=== PATIENT | male | born 1995 | race Hispanic/Latino ===

== ENCOUNTER 2016-06-11 14:41 | Emergency (ER) | payer BC ==
[2016-06-11 14:53] VITALS: BMI 18.5
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
[2016-06-11 16:23] VITALS: RESP 18; TEMP 98
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
[2016-06-11 17:54] VITALS: BP 119/81; PULSE 69; O2SAT 99
== END 2016-06-11 18:10 | disposition home or self-care (01) ==
LOC: ED 14:41
DX: S02.2XXD Fracture of nasal bones, subsequent encounter for fracture with routine healing (principal); S01.21XD Laceration without foreign body of nose, subsequent encounter; Y08.89XD Assault by other specified means, subsequent encounter

== ENCOUNTER 2017-10-11 11:13 | Emergency (ER) | payer BC ==
[2017-10-11 11:23] VITALS: BMI 19.0
[2017-10-11 11:26] VITALS: BP 121/86; RESP 18
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
[2017-10-11 12:20] LABS: URINE BILIRUBIN NEGATIVE (NEGATIVE); URINE BLOOD NEGATIVE (NEGATIVE); URINE GLUCOSE (UA) NEGATIVE (NEGATIVE); URINE LEUKOCYTE ESTERASE NEGATIVE Leu/uL (NEGATIVE); URINE PROTEIN 30 mg/dL (<30 mg/dL); URINE UROBILINOGEN 0.2 E.U./dL (<1 E.U./dL)
[2017-10-11 12:21] LABS: URINE APPEARANCE CLEAR (CLEAR); URINE COLOR YELLOW (YELLOW)
[2017-10-11 12:22] LABS: BASO # 0.05 K/mm3 (0.0-2.0); BASO % 0.4 % (0.0-3.0); EOS % 0.3 % (1.5-5.0); GRAN # 8.33 (1.4-6.5); GRAN % 72.2 % (50.0-68.0); HEMOGLOBIN 16.7 g/dL (14.0-18.0); LYMPH % 16.9 % (22.0-35.0); MEAN CELL VOLUME 85.4 fl (80.0-105.0); MEAN CORPUSCULAR HEMOGLOBIN 30.1 pg (25.0-35.0); MEAN CORPUSCULAR HGB CONC 35.2 g/dl (31.0-37.0); MEAN PLATELET VOLUME 9.6 fl (7.0-11.0); MONO # 1.2 (0.1-0.6); MONO % 10.2 % (1.0-6.0); RBC 5.55 10^6/uL (3.5-6.1); RED CELL DISTRIBUTION WIDTH 13.5 % (11.5-14.5); WHITE BLOOD COUNT 11.6 10^3/ul (4.5-11.0)
[2017-10-11 12:31] LABS: ALB/GLOB RATIO 1.5 (1.1-1.8); ALBUMIN 5.5 g/dL (3.0-4.8); ALT/SGPT 27 U/L (7-56); AST/SGOT 32 U/L (17-59); BLOOD UREA NITROGEN 14 mg/dL (7-21); CALCIUM 10.1 mg/dL (8.4-10.5); GFR AFRICAN-AMERICAN > 60; GFR NON-AFRICAN AMERICAN > 60
[2017-10-11 12:33] LABS: ACETAMINOPHEN < 10.0 ug/ml (10.0-20.0); SALICYLATE < 1 mg/dL (2.0-20.0)
[2017-10-11 12:47] LABS: URINE BACTERIA FEW (NEG); URINE RBC 0 - 2 /hpf (0-2); URINE WBC 0 - 2 /hpf (0-6)
[2017-10-11 12:53] LABS: BARBITURATES, UR NEGATIVE (NEGATIVE); BENZODIAZEPINES, UR NEGATIVE (NEGATIVE); OPIATES, UR NEGATIVE (NEGATIVE); PHENCYCLIDINE, UR NEGATIVE (NEGATIVE)
--- NOTE | 2017-10-11 13:49 | RAD ---
Date of service: 10/11/2017 HISTORY: medical screening COMPARISON: No prior. FINDINGS: LUNGS: No active pulmonary disease. PLEURA: No significant pleural effusion identified, no pneumothorax apparent. CARDIOVASCULAR: Normal. OSSEOUS STRUCTURES: No significant abnormalities. VISUALIZED UPPER ABDOMEN: Normal. OTHER FINDINGS: None. IMPRESSION: No active disease.
--- NOTE | 2017-10-11 15:06 | CT ---
Date of service: 10/11/2017 PROCEDURE: CT HEAD WITHOUT CONTRAST. HISTORY: psychosis COMPARISON: None available. TECHNIQUE: Axial computed tomography images were obtained through the head/brain without intravenous contrast. Radiation dose: Total exam DLP = 833.29 mGy-cm. This CT exam was performed using one or more of the following dose reduction techniques: Automated exposure control, adjustment of the mA and/or kV according to patient size, and/or use of iterative reconstruction technique. FINDINGS: HEMORRHAGE: No intracranial hemorrhage. BRAIN: No mass effect or edema. No atrophy or chronic microvascular ischemic changes. VENTRICLES: Unremarkable. No hydrocephalus. CALVARIUM: Unremarkable. PARANASAL SINUSES: Unremarkable as visualized. No significant inflammatory changes. MASTOID AIR CELLS: Unremarkable as visualized. No inflammatory changes. OTHER FINDINGS: None. IMPRESSION: Normal CT of the Head.
[2017-10-11 15:28] VITALS: PULSE 89; TEMP 98.1; O2SAT 98
--- NOTE | 2017-10-11 20:02 | CARD ---
APPROVED REPORT Date of service: 10/11/2017 EKG Measurement Heart [id number] <Conclusion> Normal sinus rhythm with sinus arrhythmia Normal ECG
== END 2017-10-11 15:28 | disposition home or self-care (01) ==
LOC: ED 11:13
DX: R44.3 Hallucinations, unspecified (principal)
CPT/HCPCS: 70450; 71045; 80053; 81001; 85025; 90791; 93005; 99282; G0480

== ENCOUNTER 2017-10-13 11:28 | Inpatient (IN) | payer BC ==
[2017-10-13 11:28] VITALS: BMI 19.0
[2017-10-13 13:56] LABS: BASO # 0.03 K/mm3 (0.0-2.0); BASO % 0.4 % (0.0-3.0); EOS # 0.1 (0.0-0.7); EOS % 1.8 % (1.5-5.0); GRAN # 4.46 (1.4-6.5); GRAN % 58.9 % (50.0-68.0); HEMOGLOBIN 16.9 g/dL (14.0-18.0); LYMPH # 2.2 (1.2-3.4); LYMPH % 28.6 % (22.0-35.0); MEAN CELL VOLUME 84.7 fl (80.0-105.0); MEAN CORPUSCULAR HEMOGLOBIN 30.5 pg (25.0-35.0); MEAN PLATELET VOLUME 9.9 fl (7.0-11.0); MONO # 0.8 (0.1-0.6); MONO % 10.3 % (1.0-6.0); RBC 5.55 10^6/uL (3.5-6.1); RED CELL DISTRIBUTION WIDTH 13.3 % (11.5-14.5); WHITE BLOOD COUNT 7.6 10^3/ul (4.5-11.0)
[2017-10-13 14:00] LABS: URINE BILIRUBIN NEGATIVE (NEGATIVE); URINE BLOOD NEGATIVE (NEGATIVE); URINE GLUCOSE (UA) NEGATIVE (NEGATIVE); URINE LEUKOCYTE ESTERASE NEGATIVE Leu/uL (NEGATIVE); URINE PROTEIN TRACE mg/dL (<30 mg/dL); URINE UROBILINOGEN 0.2 E.U./dL (<1 E.U./dL)
[2017-10-13 14:02] LABS: URINE APPEARANCE SL CLOUDY (CLEAR); URINE COLOR YELLOW (YELLOW)
[2017-10-13 14:07] LABS: ACETAMINOPHEN < 10.0 ug/ml (10.0-20.0); SALICYLATE < 1 mg/dL (2.0-20.0)
[2017-10-13 14:18] LABS: URINE RBC 0 - 2 /hpf (0-2); URINE WBC 0 - 2 /hpf (0-6)
[2017-10-13 14:19] LABS: URINE BACTERIA MOD (NEG)
[2017-10-13 14:21] LABS: BARBITURATES, UR NEGATIVE (NEGATIVE); BENZODIAZEPINES, UR NEGATIVE (NEGATIVE); OPIATES, UR NEGATIVE (NEGATIVE); PHENCYCLIDINE, UR NEGATIVE (NEGATIVE)
[2017-10-13 14:21] LABS: ALB/GLOB RATIO 1.6 (1.1-1.8); ALT/SGPT 23 U/L (7-56); AST/SGOT 30 U/L (17-59); BLOOD UREA NITROGEN 13 mg/dL (7-21); CALCIUM 9.7 mg/dL (8.4-10.5); GFR AFRICAN-AMERICAN > 60; GFR NON-AFRICAN AMERICAN > 60
--- NOTE | 2017-10-13 14:23 | ED PDOC ---
Arrival/HPI - General Chief Complaint: Psychiatric Evaluation Time Seen by Provider: 10/13/17 11:31 Historian: Patient - History of Present Illness Narrative History of Present Illness (Text): 10/13/17 14:20 21yo male with pmhx of ADHD present to ED with the mother by the bedside for psychiatric evaluation. Mother states patient has been having insomnia after using Ecstasy 3weeks ago, having decreased appetite and hallucinating. He reports suicidal ideation. Denies HI, any somatic complaint. Past Medical History - Provider Review Nursing Documentation Reviewed: Yes - Infectious Disease Hx of Infectious Diseases: None - Tetanus Immunization Tetanus Immunization: Up to Date - Cardiac Hx Cardiac Disorders: No Hx Hypertension: No - Pulmonary Hx Asthma: Yes - Neurological HX Cerebrovascular Accident: No Hx Seizures: No - Hematological/Oncological Hx Cancer: No - Genitourinary/Gynecological Hx Sexually Transmitted Diseases: No - Psychiatric Hx Substance Use: No Other/Comment: adhd - Past Surgical History Past Surgical History: No Previous - Surgical History Other/Comment: nasal surgery - Anesthesia Hx Anesthesia: No Hx Anesthesia Reactions: No Hx Malignant Hyperthermia: No - Suicidal Assessment Feels Threatened In Home Enviroment: No Family/Social History - Physician Review Nursing Documentation Reviewed: Yes Family/Social History: Unknown Family HX Smoking Status: Current Some Days Smoker Hx Alcohol Use: Yes Hx Substance Use: No Hx Substance Use Treatment: No Allergies/Home Meds Allergies/Adverse Reactions: Allergies No Known Allergies Allergy (Verified 10/13/17 15:36) Home Medications: Home Meds Medication Instructions Recorded Confirmed Atomoxetine HCl [Strattera] 10 mg PO BID 10/11/17 10/13/17 Review of Systems - Physician Review All systems were reviewed & negative as marked: Yes - Review of Systems Constitutional: Normal Eyes: Normal ENT: Normal Respiratory: Normal Cardiovascular: Normal Gastrointestinal: Normal Genitourinary Male: Normal Musculoskeletal: Normal Skin: Normal Neurological: Normal Endocrine: Normal Hemo/Lymphatic: Normal Psychiatric: Suicidal Ideation Physical Exam Vital Signs Reviewed: Yes Vital Signs Temp Pulse Resp BP Pulse Ox 10/13/17 14:47 98.0 F 80 19 99 10/13/17 14:46 98.1 F 79 18 129/89 99 10/13/17 12:55 98.0 F 82 17 134/79 98 Temperature: Afebrile Blood Pressure: Normal Pulse: Regular Respiratory Rate: Normal Appearance: Positive for: Well-Appearing, Non-Toxic, Comfortable Pain Distress: None Mental Status: Positive for: Alert and Oriented X 3 - Systems Exam Head: Present: Atraumatic, Normocephalic Pupils: Present: PERRL Extroacular Muscles: Present: EOMI Conjunctiva: Present: Normal Mouth: Present: Moist Mucous Membranes Neck: Present: Normal Range of Motion Respiratory/Chest: Present: Clear to Auscultation, Good Air Exchange. No: Respiratory Distress, Accessory Muscle Use Cardiovascular: Present: Regular Rate and Rhythm, Normal S1, S2. No: Murmurs Abdomen: No: Tenderness, Distention, Peritoneal Signs Back: Present: Normal Inspection Upper Extremity: Present: Normal Inspection. No: Cyanosis, Edema Lower Extremity: Present: Normal Inspection. No: Edema Neurological: Present: GCS=15, CN II-XII Intact, Speech Normal Skin: Present: Warm, Dry, Normal Color. No: Rashes Psychiatric: Present: Alert, Oriented x 3, Normal Insight, Normal Concentration Medical Decision Making ED Course and Treatment: 10/13/17 20:56 PT was calm in ED. Medically cleared in ED for psych evaluation. she was seen by Dioni and admitted to Dr. Ghotra for Substance induced psychosis. EKG NSR @82bpm - Lab Interpretations Lab Results: 10/13/17 13:45 10/13/17 13:45 Lab Results 10/13/17 13:45: Alcohol, Quantitative < 10 10/13/17 13:45: Salicylates < 1 L, Acetaminophen < 10.0 L 10/13/17 13:45: Sodium 142, Potassium 3.8, Chloride 101, Carbon Dioxide 27, Anion Gap 18, BUN 13, Creatinine 1.0, Est GFR ( Amer) > 60, Est GFR (Non- Af Amer) > 60, Random Glucose 121 H, Calcium 9.7, Magnesium 2.3 H, Total Bilirubin 1.1, AST 30, ALT 23, Alkaline Phosphatase 80, Total Protein 8.2, Albumin 5.0 H, Globulin 3.2, Albumin/Globulin Ratio 1.6 10/13/17 13:45: WBC 7.6 D, RBC 5.55, Hgb 16.9, Hct 47.0, MCV 84.7, MCH 30.5, MCHC 36.0, RDW 13.3, Plt Count 221, MPV 9.9, Gran % 58.9, Lymph % (Auto) 28.6, [place] % (Auto) 10.3 H, Eos % (Auto) 1.8, Baso % (Auto) 0.4, Gran # 4.46, Lymph # (Auto) 2.2, [place] # (Auto) 0.8 H, Eos # (Auto) 0.1, Baso # (Auto) 0.03 10/13/17 13:30: Urine Opiates Screen Negative, Urine Methadone Screen Negative, Ur Barbiturates Screen Negative, Ur Phencyclidine Scrn Negative, Ur Amphetamines Screen Negative, U Benzodiazepines Scrn Negative, U Oth Cocaine Metabols Negative, U Cannabinoids Screen Positive H 10/13/17 13:30: Urine Color Yellow, Urine Appearance Sl cloudy, Urine pH 6.0, Ur Specific [place] >= 1.030, Urine Protein Trace H, Urine Glucose (UA) Negative , Urine Ketones Trace H, Urine Blood Negative, Urine Nitrate Negative, Urine Bilirubin Negative, Urine Urobilinogen 0.2, Ur Leukocyte Esterase Negative, Urine RBC 0 - 2, Urine WBC 0 - 2, Ur Epithelial Cells None, Urine Bacteria Mod - Medication Orders Current Medication Orders: Acetaminophen (Tylenol 325mg Tab) 650 mg PO Q6H PRN PRN Reason: Pain, moderate (4-7) Al Hydrox/Mg Hydrox/Simethicone (Maalox Plus 30 Ml) 30 ml PO DAILY PRN PRN Reason: Indigestion / Heartburn Lorazepam (Ativan) 2 mg IM Q6H PRN; Protocol PRN Reason: Agitation Lorazepam (Ativan) 2 mg PO Q6H PRN; Protocol PRN Reason: Anxiety Last Admin: 10/13/17 16:13 Dose: 2 mg Behavioural Document 10/13/17 16:13 CV (Rec: 10/13/17 16:13 CV [id number]) Maintenance Maintenance Dose No Nonmedicinal Nonmedicinal Interventions Therapeutic Communication Behavior Behavior for Medication: Anxiety Re-Assess: Reassess Psych Meds Document 10/13/17 17:13 CV (Rec: 10/13/17 18:50 CV [id number]) Reassess Psych Med Effective Magnesium Hydroxide (Milk Of Magnesia) 30 ml PO DAILY PRN PRN Reason: Constipation Risperidone (Risperdal Tab) 0.5 mg PO AMHS JENNA PRN Reason: Protocol Ziprasidone (Geodon Cap) 20 mg PO Q6H PRN; Protocol PRN Reason: Anxiety Last Admin: 10/13/17 16:13 Dose: 20 mg Behavioural Document 10/13/17 16:13 CV (Rec: 10/13/17 16:13 CV [id number]) Maintenance Maintenance Dose No Nonmedicinal Nonmedicinal Interventions Therapeutic Communication Behavior Behavior for Medication: Anxiety Re-Assess: Reassess Psych Meds Document 10/13/17 17:13 CV (Rec: 10/13/17 18:50 CV [id number]) Reassess Psych Med Effective Ziprasidone (Geodon Inj) 20 mg IM Q6H PRN; Protocol PRN Reason: Agitation Zolpidem Tartrate (Ambien) 5 mg PO HS PRN; Protocol PRN Reason: Insomnia Disposition/Present on Arrival - Present on Arrival Any Indicators Present on Arrival: No History of DVT/PE: No History of Uncontrolled Diabetes: No Urinary Catheter: No History of Decub. Ulcer: No History Surgical Site Infection Following: None - Disposition Have Diagnosis and Disposition been Completed?: Yes Diagnosis: Substance induced mood disorder Disposition: HOSPITALIZED Disposition Time: 14:25 Patient Plan: Admission Patient Problems: Current Active Problems Problem Status Onset Substance induced mood disorder Acute Condition: STABLE
[2017-10-13 14:47] VITALS: O2SAT 99
[2017-10-13] MEDS ORDERED: Alum-Mag Hydrox-Simethicone Susp (30 mL) PO PRN (15:51)
[2017-10-13] MEDS ORDERED: Magnesium Hydroxide Susp 30 ml UD PO PRN (15:52)
--- NOTE | 2017-10-13 16:26 | PCM.BM ---
<Stacie Garcia - Last Filed: 10/13/17 16:22> Treatment Plan Problems - Problems identified on initial assessmt ineffective ind coping Date Initiated: 10/13/17 Time Initiated: 16:30 Assessment reference: NA Status: Active Priority: 1 deprivation of sleep Date Initiated: 10/13/17 Time Initiated: 16:30 Assessment reference: NA Status: Active Priority: 2 increased anxiety Date Initiated: 10/13/17 Time Initiated: 16:30 Assessment reference: NA Status: Active Priority: 3 used of alcohol and drugs Date Initiated: 10/13/17 Time Initiated: 16:30 Assessment reference: NA Status: Active Priority: 4 Treatment assets and liabiliti Patient Assests: cooperative, ADL independent, physically healthy, good support system, cognitively intact Patient Liabilities: substance abuse - Milieu Protocol Maintain good personal hygiene: every shift Encourage regular showers, every shift Remind patient to perform daily oral care, every shift Assist patient to perform ADL's Maintain personal safety: daily Educate patient to report safety concerns to staff, daily Monitor environment for contraband/sharps Medication safety: Monitor for expected outcome, potential side effects: daily, Assess barriers to learning: daily, Assess readiness for medication education: daily Discharge/Continuing Care - Education Needs Education Needs: Patient Medication, Patient Diagnosis/Disease Process, Patient Coping Skills, Patient Community resources, Patient Activities of Daily Living, Patient Pain, Patient Nutrition, Patient Health Practices/Safety, Patient Personal Hygiene/Grooming, Patient Aftercare Safety Plan - Discharge Discharge Criteria: Tolerates medication w/o severe side effects, Free of Suicidal thoughts, Free of Homicidal thoughts, Free of paranoid thoughts, Free of agitation, Ability to care for self, Reduction of target symptoms Discharge to:: Home, Substance Abuse Rehab <Paradise Perrin - Last Filed: 10/14/17 15:29> - Diagnosis (1) Psychosis Status: Acute Interventions: 10/14/17 15:29 Psychoeducation/psychotherapy Psychopharmacology/adjustment of medications as needed/ monitoring possible side effects Evaluate pt on daily basis Compliance with medications and follow up appointments Long acting medication if pt is noncompliant with pill form Suicide and homicide risk assessment and prevention, coping strategies, safety plan Relapse prevention Reduction of symptoms Improve functional status Possible assertive community treatment Cognitive behavioral therapy Family involvement Possible social skill training as outpatient <Vanessa Levi - Last Filed: 10/15/17 12:08> Family Contact - Outside Agency Agency 1 Care involvment: Information-sharing Agency contact name: Dr. Buddy Nascimento Agency contact number: [phone] estela Gaston Care involvment: Not involved Agency contact name: Frankie Cardoso, therapist
[2017-10-14 07:12] LABS: HDL CHOLESTEROL 61 mg/dL (29-60)
[2017-10-14 07:23] LABS: LDL CHOLESTEROL 86 mg/dL (0-129)
[2017-10-14 07:31] LABS: FREE T4 1.24 ng/dL (0.78-2.19)
--- NOTE | 2017-10-14 09:09 | CARD ---
APPROVED REPORT Date of service: 10/13/2017 EKG Measurement Heart [id number] <Conclusion> Normal sinus rhythm with sinus arrhythmia Normal ECG
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
[2017-10-15 06:59] VITALS: RESP 20
--- NOTE | 2017-10-15 10:17 | RAD ---
Date of service: 10/15/2017 HISTORY: MEDICAL CLEARANCE COMPARISON: 10/11/2017 FINDINGS: LUNGS: No active pulmonary disease. PLEURA: No significant pleural effusion identified, no pneumothorax apparent. CARDIOVASCULAR: Normal. OSSEOUS STRUCTURES: No significant abnormalities. VISUALIZED UPPER ABDOMEN: Normal. OTHER FINDINGS: None. IMPRESSION: No active disease.
--- NOTE | 2017-10-15 12:42 | PCM.PYCHPN ---
Psychiatric Progress Note - Psychiatric Progress Note Patient seen today, length of contact: 30min Patient Chief Complaint: "I am receiving vibes from others, I feel trapped, I took apart TV because people are monitoring me, of course they will lie, but I know what is going on...' Problems Identified/Issues Discussed: Suicide/ homicide prevention, past psychiatric h/o, current psychiatric symptoms , medical problems, risk/benefits and alternatives of medications, medications compliance, coping strategies, substance abuse h/o, relapse prevention, importance of follow up with psychiatrist and therapist, discharge plan. Medical Problems: denied Diagnostic Results: 10/13/17 13:45 10/13/17 13:45 Lab Results 10/14/17 06:50: Triglycerides 70, Cholesterol 171, LDL Cholesterol Direct 86, HDL Cholesterol 61 H 10/14/17 06:50: RPR Nonreactive 10/14/17 06:50: Free T4 1.24, TSH 3rd Generation 0.94 10/13/17 13:45: Alcohol, Quantitative < 10 10/13/17 13:45: Salicylates < 1 L, Acetaminophen < 10.0 L 10/13/17 13:45: Sodium 142, Potassium 3.8, Chloride 101, Carbon Dioxide 27, Anion Gap 18, BUN 13, Creatinine 1.0, Est GFR ( Amer) > 60, Est GFR (Non- Af Amer) > 60, Random Glucose 121 H, Calcium 9.7, Magnesium 2.3 H, Total Bilirubin 1.1, AST 30, ALT 23, Alkaline Phosphatase 80, Total Protein 8.2, Albumin 5.0 H, Globulin 3.2, Albumin/Globulin Ratio 1.6 10/13/17 13:45: WBC 7.6 D, RBC 5.55, Hgb 16.9, Hct 47.0, MCV 84.7, MCH 30.5, MCHC 36.0, RDW 13.3, Plt Count 221, MPV 9.9, Gran % 58.9, Lymph % (Auto) 28.6, [place] % (Auto) 10.3 H, Eos % (Auto) 1.8, Baso % (Auto) 0.4, Gran # 4.46, Lymph # (Auto) 2.2, [place] # (Auto) 0.8 H, Eos # (Auto) 0.1, Baso # (Auto) 0.03 10/13/17 13:30: Urine Opiates Screen Negative, Urine Methadone Screen Negative, Ur Barbiturates Screen Negative, Ur Phencyclidine Scrn Negative, Ur Amphetamines Screen Negative, U Benzodiazepines Scrn Negative, U Oth Cocaine Metabols Negative, U Cannabinoids Screen Positive H 10/13/17 13:30: Urine Color Yellow, Urine Appearance Sl cloudy, Urine pH 6.0, Ur Specific [place] >= 1.030, Urine Protein Trace H, Urine Glucose (UA) Negative , Urine Ketones Trace H, Urine Blood Negative, Urine Nitrate Negative, Urine Bilirubin Negative, Urine Urobilinogen 0.2, Ur Leukocyte Esterase Negative, Urine RBC 0 - 2, Urine WBC 0 - 2, Ur Epithelial Cells None, Urine Bacteria Mod Vital Signs Temp Pulse Resp BP Pulse Ox 10/15/17 06:58 98.3 F 105 H 20 10/14/17 16:00 96 H 118/77 10/14/17 06:41 97.9 F 57 L 16 95/65 L 10/13/17 16:00 17 10/13/17 14:47 98.0 F 80 19 99 10/13/17 14:46 98.1 F 79 18 129/89 99 10/13/17 12:55 98.0 F 82 17 134/79 98 DSM 5 Symptoms Update: shortly, patient is 21 year old male with reported h/o ADHD, not known previous psych admissions, pt denied, pt denied h/o suicidal attempts, pt was brought in by his mother twice for the past two days, initially 10/11 for bizarre delusions and disorganized behavior pt took apart his TV feeling that people are monitoring him through "devices in TV", and "everybody there out to get him", pt was d/c back then, but was brought in by his mother again 10/13/17 for similar presentation, pt reported SI on top of bizarre delusions, pt requires further evaluation and stabilization, med management and observation. please see initial assessment for more detailed information. pt was seen today, pt signed 48hr notice yesterday, requesting to be d/c immediately, this chief writer educated pt about the potential [place] [facility] [place] pt still insisted. pt was seen today at the treatment team meeting, pt presented the same way, bizarre, delusional, said that he still can feel "vibes in the environment", hear his own voice "to be discharged", pt still delusional that he was monitored in the community and that is why he took apart his TV, "what do you mean what are the chances that it is not true?, of course it is true, I know people who might do that, this is my mother's boyfriend and my ex-friend". pt was willing to rescind the 48 hr notice, then changed his mind, then came back saying that he wants to stay only because he does not want to be transferred anywhere. eventually rescinded it. pt has very poor insight, feeling "I feel great, nothing is wrong with me, I had no reasons to be trapped here". so far no agitation or aggression, pt is compliant with meds as per staff. pt tolerated meds well no side effects observed or reported. AIMS 0, no EPS. Impression: brief psychotic disorder r/o first break of schizophrenia r/o substance induced psychosis cannabis abuse Medication Change: Yes (risperdal increased) Medical Record Reviewed: Yes Consults ordered or reviewed: pt is healthy, vitals are WNL, pt was seen by physician in ED Mental Status Examination - Cognitive Function Orientation: Person, Place, Situation, Time Memory: Intact Attention: Poor Concentration: Poor Association: Loose Fund of Knowledge: WNL - Mood Mood: Depressed ("I feel great") - Affect Affect: Flat - Speech Speech: Appropriate - Formal Thought Process Formal Thought Process: Hallucinations, Delusions, Paranoia, Loosening of associations, Circumstantial, Thought Broadcasting - Suicidal Ideation Suicidal Ideation: No - Homicidal Ideation Homicidal Ideation: No Goal/Treatment Plan - Goal/Treatment Plan Need for Continued Stay: Remain at risks for inpatient hospitalization, Severe depression anxiety, Discharge may exacerbated symptoms, Severe functional impairment Progress Toward Problem(s) and Goals/Treatment Plan: Milieu/structure/supportive therapy SW consultation for discharge plan and social issues Med management d/c stimulants wellbutrin for ADHD and depression/smoking risperdal will be continued ambien for insomnia d/w family, mother Susi Follow up on labs Will monitor closely Pt was educated about risk/benefits and alternatives of medications, coping strategies (safety plan, suicide prevention), relapse prevention, importance of follow up with psychiatrist and therapist, stay away from drugs/alcohol/smoking pt submitted 48hr notice, but reluctantly rescinded it pt was agitated later, needed to be medicated with geodon Estimated Date of D/C: 10/20/17
--- NOTE | 2017-10-16 15:33 | PCM.PYCHPN ---
Psychiatric Progress Note - Psychiatric Progress Note Patient seen today, length of contact: 30min Patient Chief Complaint: "I am receiving vibes from others, I feel trapped, I fell that something bad is going to happen to me" Problems Identified/Issues Discussed: Suicide/ homicide prevention, past psychiatric h/o, current psychiatric symptoms , medical problems, risk/benefits and alternatives of medications, medications compliance, coping strategies, substance abuse h/o, relapse prevention, importance of follow up with psychiatrist and therapist, discharge plan. Medical Problems: denied Diagnostic Results: 10/13/17 13:45 10/13/17 13:45 Lab Results 10/14/17 06:50: Triglycerides 70, Cholesterol 171, LDL Cholesterol Direct 86, HDL Cholesterol 61 H 10/14/17 06:50: RPR Nonreactive 10/14/17 06:50: Free T4 1.24, TSH 3rd Generation 0.94 10/13/17 13:45: Alcohol, Quantitative < 10 10/13/17 13:45: Salicylates < 1 L, Acetaminophen < 10.0 L 10/13/17 13:45: Sodium 142, Potassium 3.8, Chloride 101, Carbon Dioxide 27, Anion Gap 18, BUN 13, Creatinine 1.0, Est GFR ( Amer) > 60, Est GFR (Non- Af Amer) > 60, Random Glucose 121 H, Calcium 9.7, Magnesium 2.3 H, Total Bilirubin 1.1, AST 30, ALT 23, Alkaline Phosphatase 80, Total Protein 8.2, Albumin 5.0 H, Globulin 3.2, Albumin/Globulin Ratio 1.6 10/13/17 13:45: WBC 7.6 D, RBC 5.55, Hgb 16.9, Hct 47.0, MCV 84.7, MCH 30.5, MCHC 36.0, RDW 13.3, Plt Count 221, MPV 9.9, Gran % 58.9, Lymph % (Auto) 28.6, [place] % (Auto) 10.3 H, Eos % (Auto) 1.8, Baso % (Auto) 0.4, Gran # 4.46, Lymph # (Auto) 2.2, [place] # (Auto) 0.8 H, Eos # (Auto) 0.1, Baso # (Auto) 0.03 10/13/17 13:30: Urine Opiates Screen Negative, Urine Methadone Screen Negative, Ur Barbiturates Screen Negative, Ur Phencyclidine Scrn Negative, Ur Amphetamines Screen Negative, U Benzodiazepines Scrn Negative, U Oth Cocaine Metabols Negative, U Cannabinoids Screen Positive H 10/13/17 13:30: Urine Color Yellow, Urine Appearance Sl cloudy, Urine pH 6.0, Ur Specific [place] >= 1.030, Urine Protein Trace H, Urine Glucose (UA) Negative , Urine Ketones Trace H, Urine Blood Negative, Urine Nitrate Negative, Urine Bilirubin Negative, Urine Urobilinogen 0.2, Ur Leukocyte Esterase Negative, Urine RBC 0 - 2, Urine WBC 0 - 2, Ur Epithelial Cells None, Urine Bacteria Mod Vital Signs Temp Pulse Resp BP Pulse Ox 10/15/17 06:58 98.3 F 105 H 20 10/14/17 16:00 96 H 118/77 10/14/17 06:41 97.9 F 57 L 16 95/65 L 10/13/17 16:00 17 10/13/17 14:47 98.0 F 80 19 99 10/13/17 14:46 98.1 F 79 18 129/89 99 10/13/17 12:55 98.0 F 82 17 134/79 98 DSM 5 Symptoms Update: shortly, patient is 21 year old male with reported h/o ADHD, not known previous psych admissions, pt denied, pt denied h/o suicidal attempts, pt was brought in by his mother twice for the past two days, initially 10/11 for bizarre delusions and disorganized behavior pt took apart his TV feeling that people are monitoring him through "devices in TV", and "everybody there out to get him", pt was d/c back then, but was brought in by his mother again 10/13/17 for similar presentation, pt reported SI on top of bizarre delusions, pt requires further evaluation and stabilization, med management and observation. please see initial assessment for more detailed information. pt was seen today,pt rescinded 48hr notice yesterday, pt still disorganized, feeling that he will be raped in the unit "I am fighting over my life, I cannot sleep", no evidence that any of other pts or staff was making any threats, we have only few pts in the unit and staff as well as other pt are very supportive. pt does not make much sense, pt said that he still feels "vibes, bad energy", pt stated that he does not want to continue medications and "I want to have therapy only. delusional perception, disorganized thoughts and behavior, but no agitation. supportive therapy, pt was educated about tx plan and meds. pt's mother willing to participate in family meeting tomorrow. pt tolerated meds well no side effects observed or reported. AIMS 0, no EPS. Impression: brief psychotic disorder r/o first break of schizophrenia r/o substance induced psychosis cannabis abuse Medication Change: Yes (risperdal increased) Medical Record Reviewed: Yes Consults ordered or reviewed: pt is healthy, vitals are WNL, pt was seen by physician in ED Mental Status Examination - Cognitive Function Orientation: Person, Place, Situation, Time Memory: Intact Attention: Poor Concentration: Poor Association: Loose Fund of Knowledge: WNL - Mood Mood: Depressed ("I feel great") - Affect Affect: Flat - Speech Speech: Appropriate - Formal Thought Process Formal Thought Process: Hallucinations, Delusions, Paranoia, Loosening of associations, Circumstantial, Thought Broadcasting - Suicidal Ideation Suicidal Ideation: No - Homicidal Ideation Homicidal Ideation: No Goal/Treatment Plan - Goal/Treatment Plan Need for Continued Stay: Remain at risks for inpatient hospitalization, Severe depression anxiety, Discharge may exacerbated symptoms, Severe functional impairment Progress Toward Problem(s) and Goals/Treatment Plan: Milieu/structure/supportive therapy SW consultation for discharge plan and social issues Med management d/c stimulants wellbutrin for ADHD and depression/smoking risperdal 1mg po tid for psychosis benadryl at hs for EPS and insomnia ambien for insomnia d/w family, mother Susi Follow up on labs Will monitor closely Pt was educated about risk/benefits and alternatives of medications, coping strategies (safety plan, suicide prevention), relapse prevention, importance of follow up with psychiatrist and therapist, stay away from drugs/alcohol/smoking family meeting for tomorrow Estimated Date of D/C: 10/20/17
[2017-10-17 06:46] VITALS: BP 108/75; PULSE 75; TEMP 97.5
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
== END 2017-10-17 15:17 | disposition left against medical advice (07) | DRG 885 ==
LOC: ED 11:28 → ERH 14:25 → PSYC 15:09
PROVIDERS: ADMIT Psychiatry & Neurology Psychiatry; ATTEND Psychiatry & Neurology Psychiatry
DX: F23 Brief psychotic disorder (principal); Z68.1 Body mass index [BMI] 19.9 or less, adult; R45.851 Suicidal ideations; F90.9 Attention-deficit hyperactivity disorder, unspecified type; F19.94 Other psychoactive substance use, unspecified with psychoactive substance-induced mood disorder; F12.10 Cannabis abuse, uncomplicated; G47.00 Insomnia, unspecified; J45.909 Unspecified asthma, uncomplicated; R63.6 Underweight; Z81.8 Family history of other mental and behavioral disorders

== ENCOUNTER 2018-08-04 19:59 | Emergency (ER) | payer BC ==
[2018-08-04 20:18] VITALS: BMI 19.5
[2018-08-04 20:33] VITALS: BP 122/75; PULSE 70; RESP 18; TEMP 98.1; O2SAT 97
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
== END 2018-08-04 21:59 | disposition home or self-care (01) ==
LOC: ED 19:59
DX: K62.89 Other specified diseases of anus and rectum (principal); F90.9 Attention-deficit hyperactivity disorder, unspecified type